=== PATIENT | male | born 2000 | race Hispanic/Latino ===

== ENCOUNTER 2020-03-03 21:19 | Emergency (ER) | payer MEDICAID, SELFPAY ==
[2020-03-03 21:23] VITALS: BP 154/91; PULSE 79; RESP 16; TEMP 37.1; O2SAT 99
--- NOTE | 2020-03-03 22:03 | ED.BACK ---
HPI - Back Pain/Injury General Chief Complaint: Back Pain/Injury Stated Complaint: head and back pain Time Seen by Provider: 03/03/20 22:02 History of Present Illness HPI Narrative: He has pain and muscle spasm in his neck and back. This radiates into his face and causes headaches. He has had this for quite some time and sees a chiropractor regularly. Related Data Allergies Allergy/AdvReac Type Severity Reaction Status Date / Time No Known Allergies Allergy Mild Verified 03/03/20 22:07 Review of Systems Review of Systems: All systems reviewed & are unremarkable except as noted in HPI and below Constitutional: Constitutional: Denies fever(s) Eyes: Eyes: Denies change in vision Cardiovascular: Cardiovascular: Denies chest pain Respiratory: Respiratory: Denies dyspnea Musculoskeletal: Musculoskeletal: Reports back pain Neurologic: Reports headache(s), Denies numbness and Denies weakness PMFSH Social History Social History Gender identity (if verbalized by the patient): Male Exam Const: General: healthy appearing, no acute distress and alert Nutritional Appearance: well nourished Orientation/consciousness: patient oriented x3 HENMT: Head: normal to inspection Eyes: Pupils: Equal, round and reactive pupils present EOM: EOMs intact bilaterally Resp: Effort & Inspection: normal respiratory effort Auscultation: clear to auscultation bilaterally Cardio: Rate: regular rate Rhythm: regular rhythm Back/Spine/Pelvis: Other: Muscle spasm and tenderness in paraspinal muscles at left occiput Skin: General skin exam: normal color Neuro: General: patient oriented x3, moves all extremities, no focal motor deficits and CN's II-XI intact bilaterally Speech: normal speech Extrem: General: normal to inspection Course Vital Signs Vital signs: Vital Signs Temperature 37.1 C 03/03/20 21:23 Pulse Rate 79 03/03/20 21:23 Respiratory Rate 16 03/03/20 21:23 Blood Pressure 154/91 H 03/03/20 21:23 Pulse Oximetry 99 03/03/20 21:23 Temperature 37.1 C 03/03/20 21:23 Pulse Rate 79 03/03/20 21:23 Respiratory Rate 17 03/03/20 22:40 Blood Pressure 154/91 H 03/03/20 21:23 Pulse Oximetry 99 03/03/20 21:23 Procedures Other Procedure Procedure 1: Other Procedure: Trigger point injection 4 ml Bupivicaine 0.5% and 1 ml were mixed in a 5 ml syringe Trigger point injection was then performed in 1 location MDM - Back Pain/Injury MDM Narrative Medical decision making narrative: 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 I think this is likely the cause of his symptoms. I will do trigger point injections and prescrib flexeril. Medical Records Attestation: I reviewed the patient's medical records. Discharge Plan Discharge Clinical Impression: Cervical paraspinal muscle spasm Patient Disposition: Home, Self-Care Condition: Stable Instructions: Muscle Spasm (ED) Prescriptions: New cyclobenzaprine 10 mg tablet 10 mg PO TID PRN (Reason: muscle spasm) Qty: 20 RF: 0 Follow-up/Referrals: Ke Zelaya MD [Physician] - PHYSICIAN,[employer] [Primary Care Provider] - Discharge Date/Time: 03/03/20 22:40
[2020-03-03 22:40] VITALS: RESP 17
== END 2020-03-03 22:40 | disposition home or self-care (01) ==
PROVIDERS: Emergency Provider Emergency Medicine
DX: M62.838 Other muscle spasm (principal)
CPT/HCPCS: 20552; 99283

== ENCOUNTER 2023-02-05 03:19 | Emergency (ER) | payer OTHER, SELFPAY ==
[2023-02-05] VITALS (35 sets, daily range): BP systolic 136–170; BP diastolic 83–118; PULSE 49–99; RESP 14–29; TEMP 36.6; O2SAT 96–100
--- NOTE | ~2023-02-05 | CT_ITS ---
EXAMINATION: CT abdomen pelvis w con DATE: 02/05/2023 05:31 INDICATION: Left upper quadrant abdominal pain TECHNIQUE: Computed tomography (CT) of the abdomen and pelvis was performed with 100 CC Omnipaque 350 intravenous contrast. Automated exposure control and iterative reconstruction technique were employe d. Exam dose: 523.47 mGy-cm total exam DLP. COMPARISON: None. FINDINGS: The lung bases are clear. Normal heart size. No pericardial or pleural effusion. No hepatic, splenic, pancreatic, and adrenal or renal space-occupying mass lesion is evident. No bile duct or pancreatic duct dilatation. No urinary tract calculus or hydroureteronephrosis. Normal caliber of the abdominal aorta. No intraperitoneal or retroperitoneal or pelvic mass lesion or adenopathy or ascites. Normal appendix. No bowel obstruction, bowel wall thickening, pneumatosis or intraperitoneal free air is detected. Small fat-containing umbilical hernia. Included skeletal structures are unremarkable. IMPRESSION: No significant abnormality Reviewed, dictated and finalized at [facility]. Reviewed, dictated and finalized at [facility]. IMPRESSION: No significant abnormality
--- NOTE | ~2023-02-05 | XR_ITS ---
XR chest 2V DATE: 02/05/2023 04:14 INDICATION: Epigastric pain TECHNIQUE: PA and lateral views COMPARISON: None FINDINGS: Normal heart size. No hilar or mediastinal enlargement. No pulmonary infiltrate or consolid ation, pleural effusion or pulmonary vascular congestion or pneumothorax. Thoracic levoscoliosis. IMPRESSION: No active cardiopulmonary disease Reviewed, dictated and finalized at [facility].
--- NOTE | 2023-02-05 03:24 | ECG_ITS ---
Measurements Intervals [place] Rate: 92 P: 50 ND: 173 QRS: 57 QRSD: 104 T: 16 QT: 346 QTc: 430 Interpretive Statements SINUS RHYTHM EARLY REPOLARIZATION NORMAL ECG NO PREVIOUS ECG AVAILABLE FOR COMPARISON Electronically Signed On 02-05-2023 8:33:14 CDT by Kofi Carbajal M.D.
--- NOTE | 2023-02-05 03:40 | ED.CHESTPAIN ---
HPI - Chest Pain General Chief Complaint: Chest Pain <Ashutosh Perez MD - Last Filed: 02/06/23 18:13> Stated Complaint: chest pain <Ashutosh Perez MD - Last Filed: 02/06/23 18:13> Time Seen by Provider: 02/05/23 03:21 <Ashutosh Perez MD - Last Filed: 02/06/23 18:13> History of Present Illness HPI narrative: 22-year-old male presented the emergency department for evaluation of left upper quadrant abdominal pain. Patient reports he does have a history of this pain. Patient states that he has been drinking some alcohol tonight. Patient reports that the pain is worsened with palpation. Patient denies any falls or injuries. <Ashutosh Perez MD - Last Filed: 02/06/23 18:13> Related Data Allergies/Adverse Reactions: Allergies Allergy/AdvReac Type Severity Reaction Status Date / Time No Known Allergies Allergy Mild Verified 02/05/23 03:19 <Ashutosh Perez MD - Last Filed: 02/06/23 18:13> Review of Systems Review of Systems: All systems reviewed & are unremarkable except as noted in HPI and below <Ashutosh Perez MD - Last Filed: 02/06/23 18:13> PMFSH Social History Social History: Social History Gender identity (if verbalized by the patient): Male <Ashutosh Perez MD - Last Filed: 02/06/23 18:13> Exam Narrative: APPEARANCE: Well appearing, no pain, no distress, well-nourished. HEAD: normocephalic, atraumatic. EYES: PERRLA/EOMI, conjunctivae clear. NOSE: Normal no drainage NECK: Supple. No adenopathy, no masses. RESPIRATORY: Airway patent, respirations nonlabored. Clear to auscultation bilaterally, no rales, rhonchi, wheezing. CARDIOVASCULAR: Regular rate and rhythm without murmurs rubs or gallops. ABDOMINAL: Left upper quadrant tenderness to palpation MUSCULOSKELETAL: Moves all extremities. Strength/ROM intact, No edema, No calf tenderness. NEURO: Alert. Cranial nerves II through XII intact. Grossly intact SKIN: Warm, dry. Normal Color <Ashutosh Perez MD - Last Filed: 02/06/23 18:13> Course Course Emergency Course: 22-year-old male present emerged department for evaluation of left lower abdominal/rib pain. Patient had no improvement with the GI cocktail. CT abdomen pelvis was pending at time of signout to Dr. Herrera. <Ashutosh Perez MD - Last Filed: 02/06/23 18:13> Reevaluation(s) Reevaluation #1: 07:00 - This patient was signed out to me by Dr. Perez, pending CT abdomen pelvis. 10:20 - STAT rad interpretation of CT abdomen pelvis shows no acute abnormality. On reevaluation, the patient states his pain is sore and cramping, typically improved with cracking of the back and of the ribs. The patient's remaining work-up is unremarkable aside from an elevated lactic acid that improved with IV fluids. Will discharge with muscle relaxants and recommendation for primary care follow-up. Discussed return and emergency precautions including signs/symptoms of respiratory distress and ACS. The patient voiced understanding and is comfortable with the plan. All questions answered to his satisfaction. <Josue Herrera MD - Last Filed: 02/05/23 10:37> Date: 02/05/23 <Josue Herrera MD - Last Filed: 02/05/23 10:37> Vital Signs Vital signs: Vital Signs Temperature 97.8 F 02/05/23 03:22 Pulse Rate 99 02/05/23 03:22 Respiratory Rate 20 02/05/23 03:22 Blood Pressure 164/105 H 02/05/23 03:22 Pulse Oximetry 100 02/05/23 03:22 Oxygen Delivery Room Air 02/05/23 03:22 Temperature 97.8 F 02/05/23 03:22 Pulse Rate 63 02/05/23 10:46 Respiratory Rate 15 02/05/23 10:46 Blood Pressure 144/88 H 02/05/23 10:46 Pulse Oximetry 100 02/05/23 10:46 Oxygen Delivery Room Air 02/05/23 03:22 <Ashutosh Perez MD - Last Filed: 02/06/23 18:13> Vital Signs Temperature 97.8 F 02/05/23 03:22 Pulse Rate 99 02/05/23 03:22 Respiratory Ra
[2023-02-05] MEDS: BELLADONNA ALK/PHENOB ELIX 10 ML, MAG HYDROX/ALUMINUM HYD/SIMETH 30 ML, LIDOCAINE HCL 2... PO (03:46)
[2023-02-05 04:45] LABS: Basophils Absolute Auto 0.1 K/mm3 (0.0-0.1); Basophils Percent Auto 1.1 % (0.2-1.2); Eosinophils Percent Auto 0.6 % (0-4.4); Hematocrit 43.1 % (42.0-52.0); Hemoglobin 15.5 g/dL (14.0-18.0); Immature Granulocyte Absolute 0.01 K/mm3 (0.00-0.031); Immature Granulocyte Percent A 0.1 % (0-0.5); Lymphocytes Absolute Auto 2.35 K/mm3 (0.9-3.2); Lymphocytes Percent Auto 32.5 % (18.3-44.2); Mean Corpuscular Hemoglobin 32.1 pg (26-34); Mean Corpuscular Volume 89.2 fl (80-100); Monocytes Absolute Auto 0.8 K/mm3 (0.1-0.6); Monocytes Percent Auto 11.5 % (2.6-8.5); Neutrophils Absolute Auto 3.9 K/mm3 (1.3-6.7); Neutrophils Percent Auto 54.2 % (45.5-73.1); Platelet Count Result 315 k/mm3 (150-375); Red Blood Count 4.83 M/mm3 (4.6-6.20); White Blood Count 7.2 K/mm3 (4.5-10.0)
[2023-02-05 04:57] LABS: Alanine Aminotransferase 46 U/L (6-50); Albumin Level 4.9 g/dL (3.5-5.1); Alkaline Phosphatase 59 U/L (38-126); Anion Gap 14 mmol/L (8-16); Aspartate Amino Transferase 41 U/L (17-59); Bilirubin,Total 0.5 mg/dL (0.2-1.3); Blood Urea Nitrogen 4 mg/dL (9-20); Calcium 8.7 mg/dL (8.4-10.2); Carbon Dioxide 22 mmol/L (22-30); Chloride 103 mmol/L (98-107); Estimated CRCL calculation 122 ml/min; Estimated Glomerular Filt Rate > 60; Glucose 122 mg/dL (65-110); Potassium 3.4 mmol/L (3.4-5.0); Sodium 139 mmol/L (137-145)
[2023-02-05] MEDS: SODIUM CHLORIDE 0.9% IV 1,000 ML 999 ML IV CONT ×2 (05:30→07:02)
[2023-02-05 06:40] LABS: Appearance Urine Clear (Clear); Bacteria Urine None Seen /hpf; Bilirubin Urine Negative (Negative); Blood Urine Negative (Negative); Color Urine Yellow (Yellow); Glucose Urine UA Negative (Negative); Ketones Urine Negative (Negative); Leukocyte Esterase Ur Negative LEU/UL (Negative); Nitrate Urine Negative (Negative); Non Pathogenic Casts 0-2; Protein Urine Trace mg/dL (Negative); RBC Urine 0-2 /hpf (0-2); Squamous Epithelial Cell Urine None seen /hpf (Few); Urobilinogen Urine 0.2 mg/dL (<2.0); WBC Urine 0-5 /hpf
[2023-02-05 06:43] LABS: Add Urine Microscopic? YES
[2023-02-05 07:42] LABS: Reflex Lactic Acid Yes or No Add Lactic
[2023-02-05 08:38] LABS: Lactic Acid 2.3 mmol/L (0.7-2.0)
== END 2023-02-05 11:02 | disposition home or self-care (01) ==
PROVIDERS: Emergency Medicine; Emergency Provider Preventive Medicine Aerospace Medicine
DX: M54.9 Dorsalgia, unspecified (principal); R10.9 Unspecified abdominal pain; E86.0 Dehydration
CPT/HCPCS: 36415; 71046; 74177; 80053; 81001; 83605; 85025; 93005; 96360; 96361; 99284; A9270; J7030; Q9967